=== PATIENT | male | born 1995 | race Hispanic/Latino ===

== ENCOUNTER 2020-05-21 04:03 | Emergency (ER) ==
[~2020-05-21] VITALS: Ht 172.7 cm; Wt 99.8 kg
[2020-05-21 04:24] VITALS: BP 154/104
[2020-05-21 04:28] VITALS: BP 154/104
--- NOTE | 2020-05-21 04:39 | NUR ---
US CALLED CALLED [facility] FOR US PER EDP
--- NOTE | 2020-05-21 04:45 | ER.PDOC ---
General Chief Complaint: Requesting Medical Care Stated Complaint: MALE Time seen by MD: 04:43 Source: patient Exam Limitations: no limitations History of Present Illness Initial Comments Left testicular pain for 3 days, no swelling, fever or chills. Severity/Quality: moderate Associated Symptoms: Testicle pain (L) Sexual History: Non-contributory Allergies: Coded Allergies: No Known Drug Allergies (Verified Allergy, Unknown, 05/21/20) Past Medical History Medical History: no pertinent history Family History Significant Family History: no pertinent family hx Review of Systems Constitutional: no symptoms reported EENTM: no symptoms reported Respiratory: no symptoms reported Cardiovascular: no symptoms reported Gastrointestinal: no symptoms reported Genitourinary: see HPI All Other Systems: Reviewed and Negative Physical Exam General Appearance: No Apparent Distress, WD/WN Neck: nml inspection, non-tender Cardiovascular/Respiratory: Regular Rate, Rhythm, No M/R/G, Normal Peripheral Pulses, No JVD, Normal Breath Sounds, No Respiratory Distress Abdomen: Normal Bowel Sounds, Non Tender, Soft, No Organomegaly, No Pulsatile Mass Male Genitals: Scrotum Tenderness (L), Testicular Tenderness (L) Back: nml inspection Extremities: Normal Range of Motion, Non-Tender, Normal Inspection, No Pedal Edema, No Calf Tenderness, Normal Capillary Refill 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, No Motor/Sensory Deficits, Alert, Normal Mood/Affect, Oriented x 3 Skin: Normal Color, Warm/Dry Results/Orders Results/Orders Orders - RIGO SCHNEIDER MD Cbc With Auto Diff (05/21/20 04:38) Urinalysis (05/21/20 04:38) Us Scrotal (05/21/20 04:38) Basic Metabolic Panel (05/21/20 04:38) Vital Signs Date Time Temp Pulse Resp B/P (MAP) Pulse Ox O2 Delivery O2 Flow Rate FiO2 05/21/20 04:28 99.6 70 17 05/21/20 04:28 99.6 70 17 98 05/21/20 04:24 99.6 70 17 154/104 (121) 98 Room Air Laboratory Tests Test 05/21/20 04:39 05/21/20 04:55 Urine Collection Type CCMS Urine Color YELLOW (YELLOW) Urine Appearance CLEAR (CLEAR) Urine Bilirubin NEGATIVE MG/DL (NEGATIVE) Urine Ketones NEGATIVE (NEGATIVE) Urine Specific Blanchard >=1.030 (1.005-1.035) Urine pH 6.5 (5.0-6.0) Urine Protein NEGATIVE (NEGATIVE) Urine Urobilinogen NEGATIVE (NEGATIVE) Urine Nitrate NEGATIVE (NEGATAIVE) Urine Leukocyte Esterase NEGATIVE (NEGATIVE) Urine Blood NEGATIVE (NEGATIVE) Urine Glucose NORMAL (NEGATIVE) White Blood Count 10.5 10^3/uL (4.5-11.0) Red Blood Count 4.93 10^6/uL (4.50-5.90) Hemoglobin 14.9 g/dL (13.9-16.3) Hematocrit 43.7 % (37.0-53.0) Mean Corpuscular Volume 88.6 fL (78-100) Mean Corpuscular Hemoglobin 30.2 pg (26-34) Mean Corpuscular Hemoglobin Concent 34.1 g/dL (33-36.5) Red Cell Distribution Width 12.9 % (11.5-14.5) Platelet Count 265 10^3/uL (150-400) Mean Platelet Volume 10.3 fL (7.8-11.0) Neutrophils (%) (Auto) 68.3 % (41.0-85.0) Lymphocytes (%) (Auto) 20.0 % (24.0-44.0) L Monocytes (%) (Auto) 7.9 % (5.0-12.0) Neutrophils # (Auto) 7.1 10^3/uL (1.8-7.7) Lymphocytes # (Auto) 2.09 10^3/uL1 (1.0-4.8) Monocytes # (Auto) 0.8 10^3/uL (0.3-0.8) Absolute Immature Granulocyte (auto 0.02 10^3 u/L (0-2) Absolute Eosinophils (auto) 0.4 10^3/uL (0.0-0.2) H Immature Granulocytes % 0.20 % (0.00-0.50) Eosinophils % 3.3 % (0.0-5.0) Basophils % 0.3 % (0.0-0.2) H Basophils # 0.0 10^3/uL (0.0-0.1) Sodium Level 140 mmol/L (132-145) Potassium Level 3.9 mmol/L (3.6-5.2) Chloride Level 104.0 mmol/L (96-109) Carbon Dioxide Level 27.8 mmol/L (20.0-32) Glucose Level 107 mg/dL (70-110) Blood Urea Nitrogen 20 mg/dL (7-18) H Creatinine 1.18 mg/dL (0.59-1.40) Calcium Level 9.3 mg/dL (8.4-10.5) Anion Gap 12.1 Estimated GFR () 92.6 (>/=60) Est GFR (CKD-EPI)(Non-Afr Syrian) 76.5 (>/=60) BUN/Creatinine Ratio 16.0 Progress Progress Left Scrotal US: Large left varicocele with significant reflux on Valsalva imaging in the area of pain, adjacent to the epididymis. ER DEPART Departure Time of Disposition: 06:18 Disposition: 01 HOME, SELF-CARE Impression: Primary Impression: Left varicocele Condition: Stable Referrals: PCP,UNKNOWN (PCP) PRIMARY CARE PROVIDER Additional Instructions: Ibuprofen F/U with Dr. Di ledezma or any other Urologist of your choice F/U with your PCP Return to the ED if worsening or concerns Duration or Time Spent with Pa: 45 min RIGO SCHNEIDER MD May 21, 2020 04:45
[2020-05-21 04:57] LABS: BASOPHIL % 0.3 % (0.0-0.2); EOSINOPHIL # 0.4 10^3/uL (0.0-0.2); EOSINOPHIL % 3.3 % (0.0-5.0); LYMPHOCYTES # 2.09 10^3/uL1 (1.0-4.8); MEAN CORP HGB 30.2 pg (26-34); MONOCYTES # 0.8 10^3/uL (0.3-0.8); MONOCYTES % 7.9 % (5.0-12.0); NEUTROPHIL # 7.1 10^3/uL (1.8-7.7); NEUTROPHILS % 68.3 % (41.0-85.0); PLATELET COUNT 265 10^3/uL (150-400); RED CELL DISTRIBUTION WIDTH 12.9 % (11.5-14.5)
[2020-05-21 05:04] LABS: APPEARANCE,URINE CLEAR (CLEAR); BILIRUBIN,URINE NEGATIVE (NEGATIVE); UA COLOR YELLOW (YELLOW)
[2020-05-21 05:05] LABS: UROBILINOGEN,URINE NEGATIVE (NEGATIVE)
[2020-05-21 05:06] LABS: CALCIUM 9.3 mg/dL (8.4-10.5); CARBON DIOXIDE 27.8 mmol/L (20.0-32)
--- NOTE | 2020-05-21 06:05 | DIREP ---
PROCEDURE:US TESTICULAR COMPARISON:None. INDICATIONS:Left testicular pain increasing x2d TECHNIQUE:The scrotum was evaluated with guzman scale, spectral analysis, and color duplex doppler sonography. FINDINGS: Right testicle measures 5.7 x 2.4 x 3.4 cm and is normal in appearance and color flow. Epididymis is unremarkable in appearance. No hydrocele or varicocele is seen. Scrotum is unremarkable. Left testicle measures 5.7 x 2.5 x 3.5 cm and is normal grayscale appearance. There is color flow to the left testicle, slightly increased when compared to the right though not felt to be hyperemic. Epididymis is unremarkable in appearance. Varicocele is seen with significant increase in blood flow on Valsalva, in particular in the region of pain adjacent to the epididymis. No hydrocele. CONCLUSION: 1. Large left varicocele with significant reflux on Valsalva imaging in the area of pain, adjacent to the epididymis. Dictated by: Santos Sosa MD on 05/21/2020 at 06:01 AM
[2020-05-21 06:30] VITALS: BP 141/88
== END 2020-05-21 06:33 | disposition home or self-care (01) ==
LOC: ER 04:03
DX: I86.1 Scrotal varices (principal); N50.812 Left testicular pain
CPT/HCPCS: 36415; 76870; 80048; 81003; 85025; 99284